=== PATIENT | female | born 1955 | race Two or more races ===

== ENCOUNTER 2017-01-01 13:08 | Day surgery (SDC) | payer OTHER ==
[~2017-01-01] VITALS: Ht 163.8 cm; Wt 83.7 kg
[2017-01-01] VITALS (11 sets, daily range): BP systolic 138–163; BP diastolic 81–96; PULSE 77–100; RESP 14–20; Ht 163.8 cm; Wt 83.7 kg
[~2017-01-01 13:08] MED LIST: ALBU18HF IH; CEFAZOLIN 2 GM/50 ML (PMX) 50 ML IVPB SCH; OMEPRAZOLE PO; PRAVASTATIN PO; SOD CHLORIDE 0.9% 1,000 ML IV SCH
[2017-01-01] MEDS ORDERED: OMEP20CA16 PO (13:38)
[2017-01-01] MEDS ORDERED: PRAV20TA63 PO (13:39)
[2017-01-01] MEDS ORDERED: CEFAZOLIN 1 GM INJ ONE (14:42)
[2017-01-01] MEDS ORDERED: ROCURONIUM 50 MG INJ ONE ×2 (14:42→16:00)
[2017-01-01] MEDS ORDERED: MIDAZOLAM 1 MG/ML 2 ML INJ ONE (14:42)
[2017-01-01] MEDS ORDERED: PROPOFOL 20 ML ONE (14:42)
[2017-01-01] MEDS ORDERED: FENTAnyl 50 MCG/ML VIAL ONE ×2 (14:42→16:00)
[2017-01-01] MEDS ORDERED: BUPIVACAINE 0.25% (MPF) 30 ML INJ ONE (15:10)
[2017-01-01] MEDS ORDERED: DEXAMETHASONE 4 MG/ML 1 ML INJ ONE (15:55)
[2017-01-01] MEDS ORDERED: KETOROLAC 30 MG INJ ONE (15:55)
[2017-01-01] MEDS ORDERED: METOCLOPRAMIDE 10 MG INJ ONE (15:55)
[2017-01-01] MEDS ORDERED: ONDANSETRON 4 MG INJ ONE (15:55)
[2017-01-01] MEDS ORDERED: SUGAMMADEX SODIUM 200 MG/2 ML VIAL IV ONE (15:56)
[2017-01-01] MEDS ORDERED: MEPERIDINE 25 MG INJ IV PRN (16:00)
[2017-01-01] MEDS ORDERED: DIPHENHYDRAMINE 50 MG INJ IV PRN (16:00)
[2017-01-01] MEDS ORDERED: HYDROmorphONE (0.2 MG/ML) 10ML SYG IV PRN ×3 (16:00)
[2017-01-01] MEDS ORDERED: EPHEDrine SULFATE 50 MG/5 ML SYG IV PRN (16:00)
[2017-01-01] MEDS ORDERED: METOCLOPRAMIDE 10 MG INJ IV PRN (16:00)
[2017-01-01] MEDS ORDERED: OXYCODONE/ACETAMINOPHEN (5/325) TAB PO PRN ×2 (16:00)
[2017-01-01] MEDS ORDERED: FENTAnyl 50 MCG/ML VIAL IV PRN ×3 (16:00)
[2017-01-01] MEDS ORDERED: LABETALOL HCL 20MG INJ IV PRN (16:00)
[2017-01-01] MEDS ORDERED: ONDANSETRON 4 MG INJ IV PRN (16:00)
[2017-01-01] MEDS ORDERED: PROVENTIL HFA 6.7GM INHALER ONE (16:24)
--- NOTE | 2017-01-01 16:25 | OPR ---
Date/Time of Note Date/Time of Note DATE: 01/01/17 TIME: 16:18 Operative Report Procedure Date: Jan 01, 2017 Preoperative Diagnosis hemorrhoids Postoperative Diagnosis same Operation/Procedure Performed 1. external hemorrhoidectomy x 2 2. internal hemorrhoidal artery ligation x 2 3. anterior perianal mass 1 cm 4. rigid proctoscopy 5. therapeutic injection of subcutaneous local anesthesia Surgeon see signature line [facility] none Anesthesia Type: general Estimated Blood Loss: 10 - 50 ml's Transfusion none Specimen left lateral external hemorrhoid right posterior external hemorrhoid anterior perianal anal mass Grafts/Implants none Complications none Indications This is a 61-year-old female with hemorrhoids with bleeding. She requests surgical repair. Risks alternatives benefits and percent were discussed the patient. Patient expressed understanding consents to the operation. Procedure Description Patient is taken to the OR and prepped and draped in usual sterile fashion. Surgical timeout was performed. IV antibiotics were given. Rigid proctoscopy is performed. There is no evidence of any masses or any lesions. Attention is paid to the left lateral hemorrhoid external hemorrhoid is excised using a 15 blade and had a LigaSure. The internal hemorrhoidal artery complex was then ligated using a 3-0 Vicryl suture ligature in a [id number] fashion. Attention was then paid to the right anterior hemorrhoidal complex. The external hemorrhoid is excised using a 15 blade and had a LigaSure. The right anterior hemorrhoidal artery was then ligated with a 3-0 Vicryl [id number] suture ligature. Additionally there was a anterior perianal mass 1 cm in size which was excised with 15 blade and cautery. The surgical sites were hemostatic. Therapeutic subcutaneous local anesthesia was injected throughout the incision site. Dressings were applied. Lyle [place] Jan 01, 2017 16:25
[2017-01-01] MEDS ORDERED: DOCUSATE SODIUM 100 MG CAP PO ONE (16:30)
[2017-01-01] MEDS ORDERED: HYDROCODONE/APAP (10/325) TAB PO ONE (16:30)
[2017-01-01] MEDS ORDERED: ALBUTEROL 0.5% (NEB) 2.5 MG/0.5 ML AMP ONE (16:34)
[2017-01-01] MEDS ORDERED: IPRATROPIUM (NEB) 0.5 MG/2.5 ML AMP HHN PRN (17:00)
[2017-01-01] MEDS ORDERED: ALBUTEROL 0.083% (NEB) 2.5 MG/3 ML AMP HHN PRN (17:00)
== END 2017-01-01 18:45 | disposition home or self-care (01) ==
LOC: SDS 13:08
PROVIDERS: ATTEND Surgery
DX: K64.4 Residual hemorrhoidal skin tags (principal); K64.8 Other hemorrhoids; K62.5 Hemorrhage of anus and rectum; K21.9 Gastro-esophageal reflux disease without esophagitis; K70.0 Alcoholic fatty liver
CPT/HCPCS: 45300; 46260; 88304; 88305; 88307; 94664; J0690; J1100; J1885; J2250; J2405; J2765; J3010; Z7512; Z7610